=== PATIENT | female | born 1955 | race Caucasian/White ===

== ENCOUNTER → 2016-11-06 | Outpatient (CLI) | payer BC | LOC: FIMAGING 08:42 | PROVIDERS: ATTEND Family Medicine | DX: Z12.31 Encounter for screening mammogram for malignant neoplasm of breast (principal) | CPT/HCPCS: G0202 ==

== ENCOUNTER 2017-07-05 09:32 | Emergency (ER) | payer MEDICAID ==
--- NOTE | 2017-07-05 09:58 | EDPHY ---
H & P Time Seen by Provider: 07/05/17 09:57 HPI/ROS: Chief complaint. Rectal bleeding HPI. 62-year-old female presents emergency department with 3 episodes of bright red blood with bowel movement this morning. It was bright red. She has slight left lower quadrant abdominal pain. She has been told in the past she has IBS. She had a colonoscopy earlier this year that was normal. No nausea and vomiting. She feels slightly lightheaded. She is concerned that her father had colon cancer. No nausea or vomiting. She does have a hemorrhoid that has occasionally bled in the past ROS Constitutional. no fever/chills, no weakness Eyes. no problems with vision ENT. no sore throat, no nasal drainage Cardiovascular. no chest pain Respiratory. no shortness of breath, no cough Abdominal. Left lower quadrant abdominal pain and bright red blood per rectum . no problems urinating MS. no calf pain/swelling, no neck/back pain, no joint pain Skin. no rash Lymph. no swollen glands Neuro. no headache, no dizziness, no difficulty walking or with speech Past Medical/Surgical History: Appendectomy, tonsillectomy, clavicle fracture, GERD, colonoscopy Social History: Single, nonsmoker, no alcohol Smoking Status: Never smoked Physical Exam: General Appearance: Alert well-developed female mild distress vital signs significant for heart rate 101 Eyes: Pupils equal and round no pallor or injection. ENT, Mouth: Mucous membranes are moist. Respiratory: There are no retractions, lungs are clear to auscultation. Cardiovascular: Regular rate and rhythm. Gastrointestinal: Abdomen is soft with slight left lower quadrant tenderness. No masses. Rectal exam shows non thrombosed external hemorrhoid with possible evidence that had been bleeding but not bleeding currently. Slight mucousy reddish blood on finger with rectal exam Neurological: Awake and alert, sensory and motor exams grossly normal. Skin: Warm and dry, no rashes. Musculoskeletal: Neck is supple nontender. Extremities symmetrical, full range of motion. Psychiatric: Patient is oriented X 3, there is no agitation. Constitutional: Initial Vital Signs Temperature (C) 36.8 C 07/05/17 09:35 Heart Rate 101 H 07/05/17 09:35 Respiratory Rate 18 07/05/17 09:35 Blood Pressure 124/91 H 07/05/17 09:35 O2 Sat (%) 96 07/05/17 09:35 O2 Delivery Mode Room Air Allergies/Adverse Reactions: No Known Allergies Allergy (Unverified 07/05/17 09:34) Home Medications: Medication Instructions Recorded Nexium 07/05/17 Medical Decision Making - Diagnostics Imaging Results: Imaging Impressions Abdomen CT 07/05/17 10:28 Impression: 1. Diverticulosis without evidence of diverticulitis. 2. Fatty infiltration of the liver. 3. Small hiatal hernia. 4. Moderate to severe centrilobular emphysema. 5. Additional findings as above. Findings discussed with Dr. Benito Prado, 07/05/2017 at 12:56. CT abdomen and pelvis with IV contrast reviewed by me shows diverticulosis but no evidence for diverticulitis. Reviewed by me and discussed with Dr. Mercado Procedures: IV normal saline. 1 L saline ED Course/Re-evaluation: Re-evaluation at 1:05 p.m.--patient is stable. She tells me she went to the bathroom and when she wiped had a little bit of blood on the toilet paper. She is not sure now whether it is coming from urine or rectum. Patient and I discussed laboratory and imaging evaluation. We discussed treatment plan including criteria for return importance of follow-up and further evaluation. She expresses understanding and agreement Differential Diagnosis: Urine shows no evidence of blood. I consider sitter diverticulitis however we do not see this on CT. Patient has a hemorrhoid that was concerning for bleeding. I suspect that the hemorrhoid is the source of the patient's blood. No evidence for intra-abdominal pathology no evidence for kidney stone either - Data Points Laboratory Results: Laboratory Results 07/05/17 10:34 07/05/17 10:34 07/05/17 07/05/17 07/05/17 12:55 10:34 10:34 WBC RBC Hgb Hct MCV MCH MCHC RDW Plt Count MPV Neut % (Auto) Lymph % (Auto) [place] % (Auto) Eos % (Auto) Baso % (Auto) Nucleat RBC Rel Count Absolute Neuts (auto) Absolute Lymphs (auto) Absolute Monos (auto) Absolute Eos (auto) Absolute Basos (auto) Absolute Nucleated RBC Immature Gran % Immature Gran # PT 12.0 SEC SEC (12.0-15.0) INR 0.87 (0.83-1.16) APTT 25.2 SEC SEC (23.0-38.0) Sodium 144 mEq/L mEq/L (135-145) Potassium 3.9 mEq/L mEq/L (3.5-5.2) Chloride 104 mEq/L mEq/L (97-110) Carbon Dioxide 25 mEq/l mEq/l (22-31) Anion Gap 15 mEq/L mEq/L (8-16) BUN 11 mg/dL mg/dL (7-23) Creatinine 0.6 mg/dL mg/dL (0.6-1.0) Estimated GFR > 60 Glucose 89 mg/dL mg/dL (70-100) Calcium 9.4 mg/dL mg/dL (8.5-10.4) Urine Color PALE YELLOW Urine Appearance CLEAR Urine pH 8.0 H (5.0-7.5) Ur Specific [place] 1.032 H (1.002-1.030) Urine Protein NEGATIVE (NEGATIVE) Urine Ketones TRACE H (NEGATIVE) Urine Blood 1+ H (NEGATIVE) Urine Nitrate NEGATIVE (NEGATIVE) Urine Bilirubin NEGATIVE (NEGATIVE) Urine Urobilinogen NEGATIVE EU EU (0.2-1.0) Ur Leukocyte Esterase NEGATIVE (NEGATIVE) Urine RBC 1-3 /hpf /hpf (0-3) Urine WBC 1-3 /hpf /hpf (0-3) Ur Epithelial Cells TRACE /lpf /lpf (NONE-1+) Urine Glucose NEGATIVE (NEGATIVE) Stool Occult Bld Scrn 07/05/17 07/05/17 10:34 10:20 WBC 5.21 10^3/uL 10^3/uL (3.80-9.50) RBC 4.28 10^6/uL 10^6/uL (4.18-5.33) Hgb 14.0 g/dL g/dL (12.6-16.3) Hct 40.1 % % (38.0-47.0) MCV 93.7 fL fL (81.5-99.8) MCH 32.7 pg pg (27.9-34.1) MCHC 34.9 g/dL g/dL (32.4-36.7) RDW 13.3 % % (11.5-15.2) Plt Count 241 10^3/uL 10^3/uL (150-400) MPV 9.5 fL fL (8.7-11.7) Neut % (Auto) 65.6 % % (39.3-74.2) Lymph % (Auto) 25.9 % % (15.0-45.0) [place] % (Auto) 6.9 % % (4.5-13.0) Eos % (Auto) 0.8 % % (0.6-7.6) Baso % (Auto) 0.6 % % (0.3-1.7) Nucleat RBC Rel Count 0.0 % % (0.0-0.2) Absolute Neuts (auto) 3.42 10^3/uL 10^3/uL (1.70-6.50) Absolute Lymphs (auto) 1.35 10^3/uL 10^3/uL (1.00-3.00) Absolute Monos (auto) 0.36 10^3/uL 10^3/uL (0.30-0.80) Absolute Eos (auto) 0.04 10^3/uL 10^3/uL (0.03-0.40) Absolute Basos (auto) 0.03 10^3/uL 10^3/uL (0.02-0.10) Absolute Nucleated RBC 0.00 10^3/uL 10^3/uL (0-0.01) Immature Gran % 0.2 % % (0.0-1.1) Immature Gran # 0.01 10^3/uL 10^3/uL (0.00-0.10) PT INR APTT Sodium Potassium Chloride Carbon Dioxide Anion Gap BUN Creatinine Estimated GFR Glucose Calcium Urine Color Urine Appearance Urine pH Ur Specific [place] Urine Protein Urine Ketones Urine Blood Urine Nitrate Urine Bilirubin Urine Urobilinogen Ur Leukocyte Esterase Urine RBC Urine WBC Ur Epithelial Cells Urine Glucose Stool Occult Bld Scrn POSITIVE H (NEGATIVE) Medications Given: Discontinued Medications Sodium Chloride (Ns) 1,000 mls @ 0 mls/hr IV EDNOW ONE; Wide Open PRN Reason: Protocol Stop: 07/05/17 10:29 Last Admin: 07/05/17 10:57 Dose: 1,000 mls Departure - Departure Disposition: Home, Routine, Self-Care Clinical Impression: Hemorrhoid Condition: Good Instructions: Hemorrhoids (ED) Additional Instructions: Increased fluids. MiraLax and stanislav Colace to soften stools so as not to bear down with bowel movements. Warm baths 3 times daily next 2 days. Tuck's pads from pharmacy to apply to bottom. return for worsening bleeding or abdominal pain. Recheck in 2 days if not improved Referrals: Evita Malone MD [Primary Care Provider] - 2-3 days, if not improved
[2017-07-05] MEDS ORDERED: NS 1,000 ML IV ONE (10:28)
[2017-07-05 10:43] LABS: PLATELET COUNT 241 10^3/uL (150-400)
[2017-07-05 10:58] LABS: INR 0.87 (0.83-1.16)
[2017-07-05] MEDS ORDERED: IOPAMIDOL (ISOVUE-300) 100 ML BTL ONE (11:29)
[2017-07-05 14:08] VITALS: BP 147/79
== END 2017-07-05 14:11 | disposition home or self-care (01) ==
DX: K64.4 Residual hemorrhoidal skin tags (principal); E86.9 Volume depletion, unspecified; Z90.89 Acquired absence of other organs
CPT/HCPCS: Q9967

== ENCOUNTER 2017-08-31 10:29 | Emergency (ER) | payer MEDICAID ==
[2017-08-31] MEDS ORDERED: LORazepam 2 MG/ML INJ ONE (11:22)
[2017-08-31] MEDS ORDERED: CHLORDIAZEPOXIDE 25MG PREPK#6 BTL TAKEHOME ONE (12:32)
[2017-09-01 05:37] VITALS: BP 138/102
--- NOTE | 2017-09-02 17:01 | EDPHY ---
H & P Stated Complaint: ETOH withdrawl Time Seen by Provider: 08/31/17 10:40 - Personal History Current Tetanus/Diphtheria Vaccine: Yes Current Tetanus Diphtheria and Acellular Pertussis (TDAP): Yes Tetanus Vaccine Date: < 10 years - Medical/Surgical History Hx Asthma: No Hx Chronic Respiratory Disease: No Hx Diabetes: No Hx Cardiac Disease: No Hx Renal Disease: No Hx Cirrhosis: No Hx Alcoholism: No Hx HIV/AIDS: No Hx Splenectomy or Spleen Trauma: No Other PMH: appy, tonsilectomy, clavicle fx - Social History Smoking Status: Never smoked Constitutional: Initial Vital Signs Heart Rate 89 08/31/17 12:40 Respiratory Rate 18 08/31/17 12:40 Blood Pressure 134/91 H 08/31/17 12:40 O2 Sat (%) 96 08/31/17 12:40 O2 Delivery Mode Room Air Allergies/Adverse Reactions: No Known Allergies Allergy (Unverified 07/05/17 09:34) Home Medications: Medication Instructions Recorded Nexium 07/05/17 Medical Decision Making ED Course/Re-evaluation: This note was created during prolonged hospital-wide EHR downtime and may be incomplete or contain inaccuracies to due circumstance limitations. CHIEF COMPLAINT: "I'm going through alcohol withdrawal" HISTORY OF PRESENT ILLNESS: The patient is a 62 y/o female with a long history of alcohol abuse arriving with her complaining of alcohol withdrawal and recent fall. She fell Wednesday night and was not evaluated at that time. She does not remember the fall or circumstances surrounding it, but has significant bilateral black eyes today. She saw her PCP today and was referred here for evaluation. She currently complains of shakiness, nausea, and malaise. Her last alcohol intake was yesterday morning. No anticoagulants use. She is uncertain if she wants to go through a formal detox at this time. REVIEW OF SYSTEMS: A 10 point review of systems was performed and is negative with the exception of the elements mentioned in the history of present illness. PHYSICAL EXAM: HR 106, BP 138/102, O2 Sat 97%, RR 24. Temp noted General Appearance: Alert, well hydrated, appropriate, and non-toxic appearing. Head: Atraumatic without scalp tenderness or obvious injury Eyes: Pupils equal, round, reactive to light and accommodation, EOMI, no injection, pronounced bilateral periorbital ecchymosis and swelling. Ears: Clear bilaterally, no perforation, normal landmarks Nose: Atraumatic, no rhinorrhea, clear. Throat: Mucus membranes moist. Neck: Supple Respiratory: No retractions, no distress, no wheezes, and no accessory muscle use. Lungs are clear to auscultation bilaterally. Cardiovascular: Regular rate and rhythm, no murmurs, rubs, or gallops. Good capillary refill all extremities. Gastrointestinal: Abdomen is soft, non-tender, non-distended, no masses, no rebound, no guarding, no peritoneal signs. Musculoskeletal: Normal active ROM of all extremities, atraumatic. Neurological: Alert, appropriate, and interactive. The patient has non-focal cranial nerves, motor, sensory, and cerebellar exam. Tremulous. Skin: No rashes, good turgor, no nodules on palpation. PAST MEDICAL HISTORY: Alcoholism; GERD - Nexium; on Prozac PAST SURGICAL HISTORY: Appendectomy SOCIAL HISTORY: at bedside. PCP: Dr. Malone DIAGNOSTICS/PROCEDURES/CRITICAL CARE TIME: Head CT: negative for acute process DIFFERENTIAL DIAGNOSIS: The differential diagnosis for the patient's head injury included but was not limited to concussion, skull fracture, intra- parenchymal contusion, subarachnoid, subdural and epidural hematoma. MEDICAL DECISION MAKING: This is a 62 y/o female who presents in alcohol withdrawal with pronounced bilateral periorbital ecchymosis secondary to a fall 2 days ago. She is tremulous, otherwise normal neuro exam. Plan for IV, labs, head CT, symptom management, case management. 1mg IV Ativan and 1L IV NS ordered. Head CT negative. Case management has discussed resources with patient and she is willing to go to the [facility]. She is feeling improved after medication and is less tremulous. DC w/Librium to [facility]. This note was created during prolonged hospital-wide EHR downtime and may be incomplete or contain inaccuracies to due circumstance limitations. - Data Points Point of Care Test Results: Chemistry 08/31/17 11:33 POC Sodium 135 mEq/L mEq/L (135-145) POC Potassium 3.7 mEq/L mEq/L (3.3-5.0) POC Chloride 97 mEq/L mEq/L (97-110) POC BUN 15 mg/dL mg/dL (7-23) POC Creatinine 0.6 mg/dL mg/dL (0.6-1.0) POC Glucose 335 mg/dL H mg/dL (70-100) ISTAT H&H 08/31/17 11:33 POC Hgb 15.0 gm/dL gm/dL (12.6-16.3) POC Hct 44 % % (38-47) Departure - Departure Disposition: Home, Routine, Self-Care Clinical Impression: Alcohol withdrawal Qualifiers: Complication of substance-induced condition: uncomplicated Qualified Code(s): F10.230 - Alcohol dependence with withdrawal, uncomplicated Fall Qualifiers: Encounter type: initial encounter Qualified Code(s): W19.XXXA - Unspecified fall, initial encounter Condition: Good Referrals: Patient,NotPresent [Primary Care Provider] - As per Instructions Report Scribed for: Jose Armando Jacob Report Scribed by: Jenna Shell
== END 2017-08-31 12:40 | disposition home or self-care (01) ==
DX: F10.230 Alcohol dependence with withdrawal, uncomplicated (principal); W18.39XA Other fall on same level, initial encounter
CPT/HCPCS: 82435-PO; 82565-PO; 82947-PO; 84132-PO; 84295-PO; 84520-PO; 85014-PO; J2060

== ENCOUNTER → 2017-11-08 | Outpatient (CLI) | payer MEDICAID | LOC: FIMAGING 10:50 | PROVIDERS: ATTEND Family Medicine | DX: Z12.31 Encounter for screening mammogram for malignant neoplasm of breast (principal); Z80.3 Family history of malignant neoplasm of breast ==

== ENCOUNTER → 2018-04-15 | Outpatient (CLI) | payer MEDICAID | LOC: FIMAGING 09:51 | PROVIDERS: ATTEND Family Medicine | DX: R91.8 Other nonspecific abnormal finding of lung field (principal); J44.9 Chronic obstructive pulmonary disease, unspecified; I25.10 Atherosclerotic heart disease of native coronary artery without angina pectoris ==